=== PATIENT | female | born 1975 | race African-American/Black ===

== ENCOUNTER 2020-09-06 14:14 | Emergency (ER) | payer OTHER ==
[2020-09-06 14:34] VITALS: BMI 27.1
[2020-09-06 18:46] VITALS: BP 132/77; PULSE 71
[2020-09-06 20:20] VITALS: TEMP 98.9
== END 2020-09-06 20:18 | disposition home or self-care (01) ==
LOC: JER 14:14
DX: I77.0 Arteriovenous fistula, acquired (principal)
CPT/HCPCS: 99281-25

== ENCOUNTER 2020-09-30 02:45 | Emergency (ER) | payer OTHER ==
[2020-09-30 02:57] VITALS: BMI 25.8
[2020-09-30 04:48] LABS: HEMATOCRIT 27.2 % (32.4-45.2); HEMOGLOBIN 8.8 GM/dL (10.7-15.3); MCH 30.6 pg (25.7-33.7); MCHC 32.5 g/dl (32.0-36.0); MEAN CELL VOLUME 94.3 fl (80-96); MEAN PLT VOLUME 7.3 fl (7.5-11.1); PLATELET COUNT 179 K/MM3 (134-434); RBC 2.88 M/mm3 (3.60-5.2); RDW 15.9 % (11.6-15.6); WHITE BLOOD COUNT 7.1 K/mm3 (4.0-10.0)
[2020-09-30 05:00] LABS: INR 0.97 (0.83-1.09); PROTHROMBIN TIME (PATIENT) 11.9 SEC (9.7-13.0)
[2020-09-30 05:02] LABS: POTASSIUM 3.7 mmol/L (3.5-5.1)
[2020-09-30 05:03] LABS: ACTIVATED PTT 30.8 SECONDS (25.2-36.5)
[2020-09-30 05:04] LABS: ALBUMIN 3.6 g/dl (3.4-5.0); CALCIUM 10.4 mg/dL (8.5-10.1)
[2020-09-30 05:05] LABS: BLOOD UREA NITROGEN 30.5 mg/dL (7-18)
[2020-09-30 05:08] LABS: CREATININE 6.6 mg/dL (0.55-1.3)
[2020-09-30 05:09] LABS: BILIRUBIN,TOTAL 0.5 mg/dL (0.2-1); TOT PROT 6.5 g/dl (6.4-8.2)
[2020-09-30 06:45] LABS: EPI CELLS >36 /uL (0-25.1); HYALINE CASTS 10 /uL (0-3.1); PH,URINE >= 9.0 (5.0-8.0); URINE APPEARANCE CLOUDY; URINE BACTERIA 1818 /uL (0-1359); URINE BILIRUBIN NEGATIVE (NEGATIVE); URINE COLOR YELLOW; URINE GLUCOSE (UA) NEGATIVE (NEGATIVE); URINE KETONE NEGATIVE (NEGATIVE); URINE LEUK ESTERASE 3+ (NEGATIVE); URINE NITRITE NEGATIVE (NEGATIVE); URINE PROTEIN 2+ (NEGATIVE); URINE RBC 17 /uL (0-23.9); URINE UROBILINOGEN 0.2 mg/dL (0.2-1.0); URINE WBC 331 /uL (0-25.8)
[2020-09-30 08:38] LABS: BASO % 0.6 % (0-2.0); EOS % 1.1 % (0-4.5); HEMATOCRIT 26.2 % (32.4-45.2); HEMOGLOBIN 8.8 GM/dL (10.7-15.3); LYMPH % 33.3 % (8-40); MCH 31.6 pg (25.7-33.7); MCHC 33.4 g/dl (32.0-36.0); MEAN CELL VOLUME 94.4 fl (80-96); MEAN PLT VOLUME 7.1 fl (7.5-11.1); MONO % 13.5 % (3.8-10.2); NEUT % 51.5 % (42.8-82.8); PLATELET COUNT 180 K/MM3 (134-434); RBC 2.77 M/mm3 (3.60-5.2); WHITE BLOOD COUNT 7.2 K/mm3 (4.0-10.0)
[2020-09-30] MEDS ORDERED: SULFAMETHOXAZOLE/TRIMETHOPRIM 800MG/160MG D.S. TABLET ONE (08:54)
[2020-09-30] MEDS: SULFAMETHOXAZOLE/TRIMETHOPRIM 800MG/160MG D.S. TABLET PO ONE ×2 (08:57→09:14)
[2020-09-30 09:20] VITALS: BP 168/92; PULSE 92; TEMP 98.6
== END 2020-09-30 08:30 | disposition home or self-care (01) ==
LOC: JER 02:45
DX: N39.0 Urinary tract infection, site not specified (principal)
CPT/HCPCS: 36415; 80053; 81003; 82272; 84703; 85025; 85027; 85610; 85730; 86850; 86900; 86901; 87086; 99284-25

== ENCOUNTER 2021-04-17 23:37 | Inpatient (IN) | payer OTHER ==
[2021-04-18] MEDS ORDERED: PANTOPRAZOLE SODIUM 40 MG VIAL IVPUSH ONE (00:22)
[2021-04-18] MEDS ORDERED: PANTOPRAZOLE SODIUM 80 MG/200 ML BAG IVPB ONE (00:30)
[2021-04-18 01:37] LABS: CALCIUM 9.4 mg/dL (8.5-10.1)
[2021-04-18 01:38] LABS: ALBUMIN 3.5 g/dl (3.4-5.0); BLOOD UREA NITROGEN 25.7 mg/dL (7-18); MAGNESIUM 2.5 mg/dL (1.8-2.4)
[2021-04-18 01:41] LABS: CREATININE 5.4 mg/dL (0.55-1.3)
[2021-04-18 01:43] LABS: BILIRUBIN,TOTAL 0.4 mg/dL (0.2-1); TOT PROT 7.2 g/dl (6.4-8.2)
[2021-04-18 01:48] LABS: BASO % 0.4 % (0-2.0); EOS % 0.9 % (0-4.5); HEMATOCRIT 36.1 % (32.4-45.2); LYMPH % 44.2 % (8-40); MCH 30.1 pg (25.7-33.7); MCHC 33.2 g/dl (32.0-36.0); MEAN CELL VOLUME 90.5 fl (80-96); MEAN PLT VOLUME 7.8 fl (7.5-11.1); MONO % 12.7 % (3.8-10.2); NEUT % 41.8 % (42.8-82.8); PLATELET COUNT 139 10^3/uL (134-434); RBC 3.99 M/mm3 (3.60-5.2); RDW 17.9 % (11.6-15.6); WHITE BLOOD COUNT 5.2 K/mm3 (4.0-10.0)
[2021-04-18] MEDS ORDERED: PANTOPRAZOLE SODIUM 40 MG VIAL IVPUSH SCH (10:00)
[2021-04-18 10:50] LABS: INR 0.9 (0.83-1.09); PROTHROMBIN TIME (PATIENT) 11.1 SEC (9.7-13.0)
[2021-04-18 10:53] LABS: ACTIVATED PTT 26.3 SECONDS (25.2-36.5)
[2021-04-18 10:55] LABS: HEMOGLOBIN 11.5 GM/dL (10.7-15.3); MCH 30.5 pg (25.7-33.7); MCHC 33.8 g/dl (32.0-36.0); MEAN PLT VOLUME 7.1 fl (7.5-11.1); PLATELET COUNT 128 10^3/uL (134-434); RBC 3.78 M/mm3 (3.60-5.2); RDW 17.9 % (11.6-15.6); WHITE BLOOD COUNT 4.3 K/mm3 (4.0-10.0)
[2021-04-18] MEDS ORDERED: PANTOPRAZOLE 40 MG TABLET ONE (10:55)
[2021-04-18] MEDS: PANTOPRAZOLE 40 MG TABLET PO SCH (12:04)
[2021-04-18] MEDS ORDERED: KETAMINE HCL 500 MG/10 ML VIAL ONE (12:08)
[2021-04-18] MEDS ORDERED: MIDAZOLAM HCL 2 MG/2 ML SINGLE DOSE VIAL ONE ×2 (12:08)
[2021-04-18] MEDS ORDERED: EPINEPHrine 1:10,000 (P-F SYR) 1 MG/10 ML DISP.SYRIN ONE (12:50)
[2021-04-18] MEDS: amLODIPine BESYLATE 5 MG TABLET (FP) PO SCH (17:05)
[2021-04-18] MEDS: SEVELAMER CARBONATE 0.8 GM POWDER PACKET PO SCH (17:31)
[2021-04-18 17:47] VITALS: BMI 27.8
[2021-04-18 17:50] LABS: HEMATOCRIT 32.8 % (32.4-45.2); HEMOGLOBIN 10.9 GM/dL (10.7-15.3); MCH 29.7 pg (25.7-33.7); MCHC 33.2 g/dl (32.0-36.0); MEAN CELL VOLUME 89.5 fl (80-96); MEAN PLT VOLUME 6.5 fl (7.5-11.1); PLATELET COUNT 116 10^3/uL (134-434); RBC 3.67 M/mm3 (3.60-5.2); RDW 17.8 % (11.6-15.6); WHITE BLOOD COUNT 4.8 K/mm3 (4.0-10.0)
[2021-04-18] MEDS: SENNOSIDES 8.6MG TABLET (FP) PO SCH ×2 (21:49→22:24)
[2021-04-18] MEDS: LORazepam 1 MG TABLET PO SCH (21:49)
[2021-04-18] MEDS: OLANZapine 10 MG TABLET PO SCH (21:49)
[2021-04-18] MEDS: BENZTROPINE MESYLATE 2 MG TABLET PO SCH ×2 (21:51→22:17)
[2021-04-18] MEDS ORDERED: PT OWN MED DRAWER 7, Y5N ONE (21:56)
[2021-04-18] MEDS: DIVALPROEX SODIUM 500 MG TABLET E.C. PO SCH (22:23)
[2021-04-19] MEDS ORDERED: SODIUM CHLORIDE 250 ML IV PRN (08:45)
[2021-04-19] MEDS ORDERED: ALLOPURINOL 100 MG TABLET (FP) PO SCH (10:00)
[2021-04-19 10:21] LABS: BASO % 0.7 % (0-2.0); EOS % 2.3 % (0-4.5); HEMATOCRIT 33.2 % (32.4-45.2); LYMPH % 37.9 % (8-40); MCH 29.7 pg (25.7-33.7); MCHC 33.3 g/dl (32.0-36.0); MEAN CELL VOLUME 89.3 fl (80-96); MONO % 12.4 % (3.8-10.2); NEUT % 46.7 % (42.8-82.8); PLATELET COUNT 119 10^3/uL (134-434); RBC 3.71 M/mm3 (3.60-5.2); RDW 17.3 % (11.6-15.6); WHITE BLOOD COUNT 4.1 K/mm3 (4.0-10.0)
[2021-04-19 10:39] LABS: CHLORIDE 94 mmol/L (98-107); SODIUM 134 mmol/L (136-145)
[2021-04-19 10:41] LABS: CALCIUM 9.2 mg/dL (8.5-10.1)
[2021-04-19 10:42] LABS: ALBUMIN 3.2 g/dl (3.4-5.0); ANION GAP 12 MMOL/L (8-16); CO2 28 mmol/L (21-32); GLUCOSE,RANDOM 140 mg/dL (74-106)
[2021-04-19 10:45] LABS: MAGNESIUM 2.5 mg/dL (1.8-2.4); PHOSPHOROUS 5.7 mg/dL (2.5-4.9); SGOT/AST 4 U/L (15-37); SGPT/ALT 9 U/L (13-61)
[2021-04-19 10:46] LABS: BILIRUBIN,TOTAL 0.4 mg/dL (0.2-1)
[2021-04-19 10:47] LABS: TOT PROT 6.2 g/dl (6.4-8.2)
[2021-04-19 10:48] LABS: ALK PHOS 371 U/L (45-117)
[2021-04-19 10:53] LABS: CREATININE 8.3 mg/dL (0.55-1.3)
[2021-04-19] MEDS: SEVELAMER CARBONATE 0.8 GM POWDER PACKET PO SCH ×3 (12:15→18:05)
[2021-04-19] MEDS: FOLIC ACID 1 MG TABLET (FP) PO SCH (13:23)
[2021-04-19] MEDS: DOCUSATE SODIUM 100 MG CAPSULE (FP) PO SCH (13:23)
[2021-04-19] MEDS: PANTOPRAZOLE 40 MG TABLET PO SCH (13:25)
[2021-04-19] MEDS: amLODIPine BESYLATE 5 MG TABLET (FP) PO SCH (13:25)
[2021-04-19] MEDS: BENZTROPINE MESYLATE 2 MG TABLET PO SCH ×2 (13:25→22:25)
[2021-04-19] MEDS: LORazepam 1 MG TABLET PO SCH ×2 (13:25→22:25)
[2021-04-19] MEDS: DIVALPROEX SODIUM 500 MG TABLET E.C. PO SCH ×2 (13:26→22:58)
[2021-04-19] MEDS ORDERED: PT OWN MED DRAWER 7, Y5N ONE (21:53)
[2021-04-19] MEDS: OLANZapine 10 MG TABLET PO SCH (22:23)
[2021-04-19] MEDS: SENNOSIDES 8.6MG TABLET (FP) PO SCH (22:27)
[2021-04-20] MEDS: SEVELAMER CARBONATE 0.8 GM POWDER PACKET PO SCH ×3 (08:42→17:04)
[2021-04-20] MEDS: LORazepam 1 MG TABLET PO SCH ×3 (10:14→22:20)
[2021-04-20] MEDS: DOCUSATE SODIUM 100 MG CAPSULE (FP) PO SCH (10:19)
[2021-04-20] MEDS: amLODIPine BESYLATE 5 MG TABLET (FP) PO SCH (10:20)
[2021-04-20] MEDS: FOLIC ACID 1 MG TABLET (FP) PO SCH (10:20)
[2021-04-20] MEDS: DIVALPROEX SODIUM 500 MG TABLET E.C. PO SCH ×3 (10:21→22:18)
[2021-04-20] MEDS: BENZTROPINE MESYLATE 2 MG TABLET PO SCH ×3 (10:21→22:19)
[2021-04-20] MEDS: PANTOPRAZOLE 40 MG TABLET PO SCH (10:21)
[2021-04-20 10:53] LABS: BASO % 0.6 % (0-2.0); EOS % 2.8 % (0-4.5); HEMATOCRIT 32.8 % (32.4-45.2); HEMOGLOBIN 10.9 GM/dL (10.7-15.3); LYMPH % 44.1 % (8-40); MCH 30.1 pg (25.7-33.7); MCHC 33.2 g/dl (32.0-36.0); MEAN CELL VOLUME 90.7 fl (80-96); MEAN PLT VOLUME 7.1 fl (7.5-11.1); MONO % 11.7 % (3.8-10.2); NEUT % 40.8 % (42.8-82.8); PLATELET COUNT 130 10^3/uL (134-434); RBC 3.62 M/mm3 (3.60-5.2); RDW 17.8 % (11.6-15.6); WHITE BLOOD COUNT 3.6 K/mm3 (4.0-10.0)
[2021-04-20 11:14] LABS: ALBUMIN 2.9 g/dl (3.4-5.0); BLOOD UREA NITROGEN 37.1 mg/dL (7-18); CALCIUM 8.8 mg/dL (8.5-10.1)
[2021-04-20 11:15] LABS: MAGNESIUM 2.1 mg/dL (1.8-2.4)
[2021-04-20 11:18] LABS: PHOSPHOROUS 5.5 mg/dL (2.5-4.9)
[2021-04-20 11:19] LABS: BILIRUBIN,TOTAL 0.3 mg/dL (0.2-1); TOT PROT 5.7 g/dl (6.4-8.2)
[2021-04-20] MEDS ORDERED: PT OWN MED DRAWER 7, Y5N ONE ×2 (20:28→21:09)
[2021-04-20] MEDS: SENNOSIDES 8.6MG TABLET (FP) PO SCH (21:47)
[2021-04-20] MEDS: OLANZapine 10 MG TABLET PO SCH ×2 (21:48→22:18)
[2021-04-21 09:14] LABS: HEMOGLOBIN 11.6 GM/dL (10.7-15.3); MCH 30.4 pg (25.7-33.7); MCHC 34.1 g/dl (32.0-36.0); MEAN CELL VOLUME 89.1 fl (80-96); MEAN PLT VOLUME 6.9 fl (7.5-11.1); PLATELET COUNT 139 10^3/uL (134-434); RBC 3.82 M/mm3 (3.60-5.2); RDW 17.7 % (11.6-15.6); WHITE BLOOD COUNT 4.8 K/mm3 (4.0-10.0)
[2021-04-21 09:26] LABS: CHLORIDE 98 mmol/L (98-107); SODIUM 135 mmol/L (136-145)
[2021-04-21 09:30] LABS: CALCIUM 9.5 mg/dL (8.5-10.1)
[2021-04-21 09:31] LABS: ALBUMIN 3.2 g/dl (3.4-5.0); ANION GAP 10 MMOL/L (8-16); CO2 27 mmol/L (21-32); GLUCOSE,RANDOM 96 mg/dL (74-106); MAGNESIUM 2.5 mg/dL (1.8-2.4)
[2021-04-21 09:34] LABS: PHOSPHOROUS 5.6 mg/dL (2.5-4.9); SGOT/AST 4 U/L (15-37); SGPT/ALT 9 U/L (13-61)
[2021-04-21 09:35] LABS: BILIRUBIN,TOTAL 0.4 mg/dL (0.2-1); TOT PROT 6.4 g/dl (6.4-8.2)
[2021-04-21] MEDS ORDERED: VITAMIN B COMP W-C 1 EA TABLET (NEPHRO-VITE) PO SCH (10:00)
[2021-04-21 10:08] LABS: ANISOCYTOSIS 0; HELMET CELLS 0; HOWELL-JOLLY BODIES 0; MACROCYTOSIS 0; OVALOCYTE 0; PLATELET ESTIMATE DECREASED; ROULEAU 0; SICKELED CELLS 0; TARGET CELLS 0; TEAR DROP CELLS 0; TOXIC GRANULATION 0
[2021-04-21 10:38] LABS: ALK PHOS 407 U/L (45-117); CREATININE 8.9 mg/dL (0.55-1.3)
[2021-04-21] MEDS ORDERED: PT OWN MED DRAWER 7, Y5N ONE ×2 (11:01→13:57)
[2021-04-21] MEDS: LORazepam 1 MG TABLET PO SCH (11:02)
[2021-04-21] MEDS: amLODIPine BESYLATE 5 MG TABLET (FP) PO SCH (11:02)
[2021-04-21] MEDS: FOLIC ACID 1 MG TABLET (FP) PO SCH (11:03)
[2021-04-21] MEDS: DOCUSATE SODIUM 100 MG CAPSULE (FP) PO SCH (11:03)
[2021-04-21] MEDS: PANTOPRAZOLE 40 MG TABLET PO SCH (11:03)
[2021-04-21] MEDS: DIVALPROEX SODIUM 500 MG TABLET E.C. PO SCH (11:04)
[2021-04-21] MEDS: BENZTROPINE MESYLATE 2 MG TABLET PO SCH (11:06)
[2021-04-21] MEDS: SEVELAMER CARBONATE 0.8 GM POWDER PACKET PO SCH ×2 (11:06→14:09)
[2021-04-21] MEDS ORDERED: SODIUM CHLORIDE 250 ML IV PRN (14:36)
[2021-04-21 15:10] VITALS: BP 156/98; PULSE 75; TEMP 98.3
== END 2021-04-21 17:11 | disposition home health service (06) | DRG 243 ==
LOC: JER 23:37 → JERBED 04-18 00:56 → J6S 04-18 16:53
PROVIDERS: ADMIT Internal Medicine; ATTEND Internal Medicine
PROC: 0DB68ZX Excision of Stomach, Via Natural or Artificial Opening Endoscopic, Diagnostic (ICD-10-PCS; principal; 2021-04-18 13:10)
PROC: 5A1D70Z Performance of Urinary Filtration, Intermittent, Less than 6 Hours Per Day (ICD-10-PCS; 2021-04-19)
DX: K21.01 Gastro-esophageal reflux disease with esophagitis, with bleeding (principal); N18.6 End stage renal disease; R11.2 Nausea with vomiting, unspecified; F31.9 Bipolar disorder, unspecified; F25.9 Schizoaffective disorder, unspecified; D64.9 Anemia, unspecified; E04.1 Nontoxic single thyroid nodule; J33.8 Other polyp of sinus; K29.80 Duodenitis without bleeding; K76.0 Fatty (change of) liver, not elsewhere classified; D69.6 Thrombocytopenia, unspecified; I12.0 Hypertensive chronic kidney disease with stage 5 chronic kidney disease or end stage renal disease; Z99.2 Dependence on renal dialysis; Z87.11 Personal history of peptic ulcer disease
CPT/HCPCS: 36415; 71045-TC-FY; 74019-TC-FY; 76700-TC; 80053; 80164; 82977; 83735; 84100; 84132; 84439; 84443; 84702; 85025; 85027; 85610; 85730; 86376; 86803; 86850; 86900; 86901; 87340; 88305-TC; 93005; 93010; 99285-25; C9803; U0003; U0005

== ENCOUNTER 2022-01-30 15:22 | Emergency (ER) | payer OTHER ==
[2022-01-30 15:46] VITALS: BP 146/87; PULSE 80; TEMP 98.9; BMI 34.0
== END 2022-01-30 19:36 | disposition home or self-care (01) ==
LOC: JER 15:22
DX: T82.838A Hemorrhage due to vascular prosthetic devices, implants and grafts, initial encounter (principal)
CPT/HCPCS: 99283-25

== ENCOUNTER 2022-03-22 20:56 | Emergency (ER) | payer OTHER ==
[2022-03-22 21:16] VITALS: BP 117/80; PULSE 79; TEMP 98.1; BMI 35.0
== END 2022-03-23 02:09 | disposition left against medical advice (07) ==
LOC: JER 20:56
DX: R39.12 Poor urinary stream (principal)
CPT/HCPCS: 99283-25